=== PATIENT | male | born 1960 | race Caucasian/White ===

== ENCOUNTER 2016-06-29 14:11 | Emergency (ER) | payer MEDICARE, MEDICAID ==
[2016-06-29] MEDS ORDERED: Sodium Chloride 0.9% 1,000 ML IV SCH (15:30)
[2016-06-29] MEDS ORDERED: Levofloxacin/Dextrose 5%-Water 750 MG in Premix Bag 1 BAG IV ONE (16:35)
--- NOTE | 2016-06-29 16:36 | EDM.PDOC ---
[id number] [facility] Time Seen by Provider: 06/29/16 14:45 Source of Information: Reports: Patient, EMS, Family History Limitations: Reports: No limitations - History of Present Illness INITIAL COMMENTS - FREE TEXT/NARRATIVE: Medical starting today because of several days of diarrhea, weakness and dizziness and intermittent low-grade fevers. His urine started turning dark today so they figured he better come in and get checked and arrived by ambulance. No significant pain, no headache. No nausea or vomiting. Onset: gradual, other Duration: Day(s): (2-3 days) Severity: mild Associated Symptoms: Reports: fever/chills, loss of appetite, weakness, other ( Diarrhea). Denies: nausea/vomiting, shortness of breath - Related Data Allergies Allergy/AdvReac Type Severity Reaction Status Date / Time Penicillins Allergy Severe anaphylaxis Verified 06/29/16 14:36 bacitracin [From Mycitracin] Allergy Mild Rash Verified 06/29/16 14:36 bacitracin zinc Allergy Mild Rash Verified 06/29/16 14:36 [From Mycitracin] neomycin sulfate Allergy Mild Rash Verified 06/29/16 14:36 [From Mycitracin] polymyxin B [From Mycitracin] Allergy Mild Rash Verified 06/29/16 14:36 sulfamethoxazole Allergy Confusion Verified 06/29/16 14:36 [From Bactrim] trimethoprim [From Bactrim] Allergy Confusion Verified 06/29/16 14:36 Home Meds: Home Meds Nystatin 15 applic TOP ASDIRECTED PRN 01/20/13 [History] Levofloxacin [Levaquin] 1 tab PO DAILY 06/29/16 [History] Past Medical History HEENT History: Reports: Impaired vision Genitourinary History: Reports: UTI, recurrent Musculoskeletal History: Reports: Arthritis, Fracture Neurological History: Reports: Other (see below) Other Neuro History: parapalegic Endocrine/Metabolic History: Reports: Obesity/BMI 30+ Dermatologic History: Reports: Other (see below) Other Dermatologic History: occasional yeast rash - Infectious Disease History Infectious Disease History: Reports: Chicken pox - Past Surgical History HEENT Surgical History: Reports: Oral surgery GI Surgical History: Reports: Colonoscopy Neurological Surgical History: Reports: Other (see below) Other Neurological Surgeries/Procedures: surgery on spine and spinal cord x7 Musculoskeletal Surgical History: Reports: Other (see below) Other Musculoskeletal Surgeries/Procedures:: left femur Social & Family History - Family History Family Medical History: Unobtainable - Tobacco Use Smoking Status *Q: Light Tobacco Smoker Years of Tobacco use: 25 Packs/Tins Daily: 0.3 Used Tobacco, but Quit: No Second Hand Smoke Exposure: Yes - Caffeine Use Caffeine Use: Reports: Coffee - Alcohol Use Days Per Week of Alcohol Use: 0 - Recreational Drug Use Recreational Drug Use: No - Living Situation & Occupation Occupation: disabled (l[facility]) ED ROS GENERAL - Review of Systems Review Of Systems: See Below Constitutional: Reports: fever, chills HEENT: Reports: No symptoms Respiratory: Denies: Shortness of Breath, Cough Cardiovascular: Denies: Chest pain GI/Abdominal: Reports: Diarrhea. Denies: Abdominal pain : Reports: other (Urine has become dark) Neurological: Reports: Dizziness Psychiatric: Reports: No symptoms ED EXAM, GENERAL - Physical Exam Exam: See Below Exam Limited By: No limitations General Appearance: alert, no apparent distress Respiratory/Chest: no respiratory distress, lungs clear Cardiovascular: regular rate, rhythm GI/Abdominal: soft, non tender Neurological: alert, oriented, sensory/motor deficit (Patient has no sensation below the xiphoid process) Course - Vital Signs Last Recorded V/S: Last Vital Signs Temp 100.9 F H 06/29/16 18:12 Pulse 105 H 06/29/16 18:12 Resp 18 06/29/16 18:12 BP 149/96 H 06/29/16 18:12 Pulse Ox 97 06/29/16 18:12 - Orders/Labs/Meds Orders: Active Orders 24 hr Category Date Time Status CULTURE URINE [RM] Stat Lab 06/29/16 16:38 Received Labs: Laboratory Tests 06/29/16 06/29/16 06/29/16 Range/Units 15:26 15:26 15:37 WBC 3.6 L (4.5-11.0) K/uL RBC 4.84 (4.30-5.90) M/uL Hgb 14.1 (12.0-15.0) g/dL Hct 40.7 (40.0-54.0) % MCV 84 (80-98) fL MCH 29 (27-31) pg MCHC 35 (32-36) % Plt Count 179 (150-400) K/uL Neut % (Auto) 54 (36-66) % Lymph % (Auto) 27 (24-44) % [place] % (Auto) 19 H (2-6) % Eos % (Auto) 0 L (2-4) % Baso % (Auto) 0 (0-1) % Sodium 125 L (140-148) mmol/L Potassium 3.3 L (3.6-5.2) mmol/L Chloride 89 L (100-108) mmol/L Carbon Dioxide 28 (21-32) mmol/L Anion Gap 11.3 (5.0-14.0) mmol/L BUN 10 (7-18) mg/dL Creatinine 0.7 L (0.8-1.3) mg/dL Est Cr Clr Drug Dosing 137.92 mL/min Estimated GFR (MDRD) > 60 (>60) Glucose 86 (74-106) mg/dL Calcium 7.7 L (8.5-10.1) mg/dL Urine Color Yellow Urine Appearance Cloudy Urine pH 6.0 (4.5-8.0) Ur Specific [place] 1.015 (1.008-1.030) Urine Protein Negative (NEGATIVE) mg/dL Urine Glucose (UA) Normal (NEGATIVE) mg/dL Urine Ketones 15 H (NEGATIVE) mg/dL Urine Occult Blood Moderate (NEGATIVE) Urine Nitrite Positive H (NEGAITVE) Urine Bilirubin Negative (NEGATIVE) Urine Urobilinogen 1 (NORMAL) mg/dL Ur Leukocyte Esterase Small (NEGATIVE) Urine RBC 5-10 H (0-5) Urine WBC Semi-packed H (0-5) Ur Epithelial Cells Few Amorphous Sediment Few Urine Bacteria Many Urine Mucus Moderate Meds: Medications Discontinued Medications Generic Name Dose Route Start Last Admin Trade Name Freq PRN Reason Stop Dose Admin Sodium Chloride 1,000 mls @ 1,000 mls/hr 06/29/16 15:30 06/29/16 15:42 Normal Saline IV 1,000 mls/hr ASDIRECTED KRISTAN Administration Levofloxacin/Dextrose 750 mg/ 150 mls @ 100 mls/hr 06/29/16 16:35 06/29/16 16 :39 Premix IV 06/29/16 18:04 100 mls/hr ONETIME ONE Administration - Re-Assessments/Exams Free Text/Narrative Re-Assessment/Exam: 03/24/17 18:16 CBC and BMP were obtained which were unremarkable. UA was nitrite positive packed bacteria. Patient was given a liter of normal saline along with 750 mg of Levaquin IV. He had no symptoms while in the emergency room, and will be continued on Levaquin 500 mg daily for another 6 days. Departure - Departure Time of Disposition: 18:30 Disposition: Home, Self-Care 01 Condition: good Clinical Impression: Dehydration, mild UTI (urinary tract infection) Qualifiers: Urinary tract infection type: acute cystitis Hematuria presence: without hematuria Qualified Code(s): N30.00 - Acute cystitis without hematuria Diarrhea Qualifiers: Diarrhea type: unspecified type Qualified Code(s): R19.7 - Diarrhea, unspecified Instructions: Urinary Tract Infection, Adult, [id number], Dehydration, Adult Referrals: Bob Rome MD [Primary Care Provider] - Forms: ED Department Discharge Care Plan Goals: Advance diet as tolerated, concentrating on fluids. Take one dose of Levaquin daily for at least 6 additional doses. Return anytime if you feel you are worsening or have other concerns - My Orders Last 24 Hours: My Active Orders 06/29/16 16:38 CULTURE URINE [RM] Stat - Assessment/Plan Last 24 Hours: My Active Orders 06/29/16 16:38 CULTURE URINE [RM] Stat
[2016-06-29 18:14] VITALS: BP 149/96
== END 2016-06-29 18:31 | disposition home or self-care (01) ==
LOC: JP.ED 14:11
DX: E86.0 Dehydration (principal); N30.00 Acute cystitis without hematuria; R19.7 Diarrhea, unspecified; F17.210 Nicotine dependence, cigarettes, uncomplicated; E66.9 Obesity, unspecified; Z68.37 Body mass index [BMI] 37.0-37.9, adult; Z98.890 Other specified postprocedural states; Z79.899 Other long term (current) drug therapy; Z88.0 Allergy status to penicillin; Z88.1 Allergy status to other antibiotic agents
CPT/HCPCS: 36415; 80048; 81001; 85025; 87086; 96361; 96365; 99284; J1956; J7040

== ENCOUNTER 2017-06-04 20:28 | Emergency (ER) | payer MEDICARE, MEDICAID ==
[2017-06-04 20:44] VITALS: BP 173/95
--- NOTE | 2017-06-04 21:11 | EDM.PDOC ---
ED HPI GENERAL MEDICAL PROBLEM - General Chief Complaint: Genitourinary Problem Stated Complaint: BLADDER INFECTION Time Seen by Provider: 06/04/17 20:55 Source of Information: Reports: Patient History Limitations: Reports: No Limitations - History of Present Illness INITIAL COMMENTS - FREE TEXT/NARRATIVE: 56-year-old male paraplegic with a chronic indwelling catheter has a standing order for Levaquin when his urine gets cloudy. He developed cloudy urine several days ago and is taken Levaquin daily for 5 days but he feels a urine is getting worse, more cloudy and a "white" colored. He had some mild low back pain yesterday but he lays down and it goes away. No fevers or chills, he does have a persistent bronchitis which is worse at night. Duration: Day(s): (Days of cloudy urine) Severity: Mild Associated Symptoms: Reports: Shortness of Breath (Becomes short of breath when coughing). Denies: Fever/Chills - Related Data Allergies Allergy/AdvReac Type Severity Reaction Status Date / Time Penicillins Allergy Severe anaphylaxis Verified 06/04/17 20:43 bacitracin [From Mycitracin] Allergy Mild Rash Verified 06/04/17 20:43 bacitracin zinc Allergy Mild Rash Verified 06/04/17 20:43 [From Mycitracin] neomycin sulfate Allergy Mild Rash Verified 06/04/17 20:43 [From Mycitracin] polymyxin B [From Mycitracin] Allergy Mild Rash Verified 06/04/17 20:43 sulfamethoxazole Allergy Confusion Verified 06/04/17 20:43 [From Bactrim] trimethoprim [From Bactrim] Allergy Confusion Verified 06/04/17 20:43 Home Meds: Home Meds Nystatin 15 applic TOP ASDIRECTED PRN 01/20/13 [History] Levofloxacin [Levaquin] 1 tab PO DAILY 06/29/16 [History] Aspirin [Lo-Dose Aspirin EC] 81 mg PO DAILY 06/04/17 [History] Past Medical History HEENT History: Reports: Impaired Vision Genitourinary History: Reports: UTI, Recurrent Musculoskeletal History: Reports: Arthritis, Fracture Neurological History: Reports: Other (See Below) Other Neuro History: parapalegic Endocrine/Metabolic History: Reports: Obesity/BMI 30+ Dermatologic History: Reports: Other (See Below) Other Dermatologic History: occasional yeast rash - Infectious Disease History Infectious Disease History: Reports: Chicken Pox - Past Surgical History HEENT Surgical History: Reports: Oral Surgery GI Surgical History: Reports: Colonoscopy Neurological Surgical History: Reports: Other (See Below) Musculoskeletal Surgical History: Reports: Other (See Below) Other Musculoskeletal Surgeries/Procedures:: para palegic Social & Family History - Family History Family Medical History: Unobtainable - Tobacco Use Smoking Status *Q: Current Every Day Smoker Years of Tobacco use: 30 Packs/Tins Daily: 0.5 Used Tobacco, but Quit: No Second Hand Smoke Exposure: Yes - Caffeine Use Caffeine Use: Reports: Coffee - Alcohol Use Days Per Week of Alcohol Use: 0 - Recreational Drug Use Recreational Drug Use: No - Living Situation & Occupation Occupation: Disabled ED ROS GENERAL - Review of Systems Review Of Systems: See Below Constitutional: Denies: Fever, Chills HEENT: Reports: No Symptoms Respiratory: Reports: Shortness of Breath, Cough Cardiovascular: Denies: Chest Pain GI/Abdominal: Denies: Abdominal Pain, Nausea, Vomiting : Reports: Other (Cloudy urine) Musculoskeletal: Reports: Back Pain (Intermittent low back pain over the past several days which improves when lying down) ED EXAM, RENAL/ - Physical Exam Exam: See Below Exam Limited By: No Limitations General Appearance: Alert, No Apparent Distress Respiratory/Chest: No Respiratory Distress, Lungs Clear Cardiovascular: Regular Rate, Rhythm Back Exam: No: CVA Tenderness (R), CVA Tenderness (L) Neurological: Alert, Oriented Psychiatric: Normal Affect, Normal Mood Skin Exam: Warm, Dry Course - Vital Signs Last Recorded V/S: Last Vital Signs Temp 97.8 F 06/04/17 20:45 Pulse 98 06/04/17 20:45 Resp 16 06/04/17 20:45 BP 173/95 H 06/04/17 20:45 Pulse Ox 96 06/04/17 20:45 - Orders/Labs/Meds Orders: Active Orders 24 hr Category Date Time Status CULTURE URINE [RM] Stat Lab 06/04/17 21:38 Received Labs: Laboratory Tests 06/04/17 Range/Units 21:04 Urine Color Yellow Urine Appearance Cloudy Urine pH 7.0 (4.5-8.0) Ur Specific [place] 1.010 (1.008-1.030) Urine Protein Negative (NEGATIVE) mg/dL Urine Glucose (UA) Normal (NEGATIVE) mg/dL Urine Ketones 15 H (NEGATIVE) mg/dL Urine Occult Blood Moderate (NEGATIVE) Urine Nitrite Positive H (NEGAITVE) Urine Bilirubin Negative (NEGATIVE) Urine Urobilinogen Normal (NORMAL) mg/dL Ur Leukocyte Esterase Large (NEGATIVE) Urine RBC 5-10 H (0-5) Urine WBC Semi-packed H (0-5) Ur Epithelial Cells Few Amorphous Sediment Not seen Urine Bacteria Many Urine Mucus Few - Re-Assessments/Exams Free Text/Narrative Re-Assessment/Exam: 06/04/17 21:10 A UA was obtained. It was explained to the patient that his cough is likely viral especially in light that it is not improving on the Levaquin. 06/04/17 21:41 UA shows packed WBCs, many bacteria and nitrite positive urine. A urine culture was initiated. Patient will be placed on Macrodantin twice daily, and will also be given Tessalon Perles and an albuterol inhaler to help with his viral bronchitis. Urine culture result will be available in 48 hours. Departure - Departure Time of Disposition: 21:59 Disposition: Home, Self-Care 01 Condition: Good Clinical Impression: UTI, Urinary tract infectious disease, Viral bronchitis - Discharge Information Instructions: Urinary Tract Infection, Adult, [id number] Referrals: Phi Steven PA [Primary Care Provider] - Forms: ED Department Discharge Care Plan Goals: Take antibiotic as directed, stop Levaquin. Use cough suppression medicine and inhaler for your bronchitis. Return anytime if worsening or concerns, a urine culture will be available in 48 hours. - My Orders Last 24 Hours: My Active Orders 06/04/17 21:38 CULTURE URINE [RM] Stat - Assessment/Plan Last 24 Hours: My Active Orders 06/04/17 21:38 CULTURE URINE [RM] Stat
== END 2017-06-04 22:00 | disposition home or self-care (01) ==
LOC: JP.ED 20:28
DX: N39.0 Urinary tract infection, site not specified (principal); J20.8 Acute bronchitis due to other specified organisms; F17.210 Nicotine dependence, cigarettes, uncomplicated; E66.9 Obesity, unspecified; Z79.82 Long term (current) use of aspirin; Z79.2 Long term (current) use of antibiotics; Z88.0 Allergy status to penicillin; Z88.1 Allergy status to other antibiotic agents; Z88.2 Allergy status to sulfonamides; Z68.36 Body mass index [BMI] 36.0-36.9, adult
CPT/HCPCS: 81001; 87086; 99283; 99284

== ENCOUNTER 2018-06-23 18:13 | Emergency (ER) | payer MEDICARE, MEDICAID ==
[2018-06-23 18:34] VITALS: BP 178/90
--- NOTE | 2018-06-23 19:11 | EDM.PDOC ---
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 noticed the last 24 hours he's developed blood and clots in his urine is concerned he might have urinary tract infection no other symptoms at this time - Related Data Allergies Allergy/AdvReac Type Severity Reaction Status Date / Time Penicillins Allergy Severe anaphylaxis Verified 06/23/18 18:38 bacitracin [From Mycitracin] Allergy Mild Rash Verified 06/23/18 18:38 bacitracin zinc Allergy Mild Rash Verified 06/23/18 18:38 [From Mycitracin] neomycin sulfate Allergy Mild Rash Verified 06/23/18 18:38 [From Mycitracin] polymyxin B [From Mycitracin] Allergy Mild Rash Verified 06/23/18 18:38 sulfamethoxazole Allergy Confusion Verified 06/23/18 18:38 [From Bactrim] trimethoprim [From Bactrim] Allergy Confusion Verified 06/23/18 18:38 Home Meds: Home Meds Nystatin 15 applic TOP ASDIRECTED PRN 01/20/13 [History] Aspirin [Lo-Dose Aspirin EC] 81 mg PO DAILY 06/04/17 [History] Past Medical History HEENT History: Reports: Impaired Vision Genitourinary History: Reports: UTI, Recurrent Musculoskeletal History: Reports: Arthritis, Fracture Neurological History: Reports: Other (See Below) Other Neuro History: parapalegic Endocrine/Metabolic History: Reports: Obesity/BMI 30+ Dermatologic History: Reports: Other (See Below) Other Dermatologic History: occasional yeast rash - Infectious Disease History Infectious Disease History: Reports: Chicken Pox - Past Surgical History HEENT Surgical History: Reports: Oral Surgery GI Surgical History: Reports: Colonoscopy Neurological Surgical History: Reports: Other (See Below) Musculoskeletal Surgical History: Reports: Other (See Below) Other Musculoskeletal Surgeries/Procedures:: para palegic Social & Family History - Family History Family Medical History: Unobtainable - Tobacco Use Smoking Status *Q: Current Every Day Smoker Years of Tobacco use: 25 Packs/Tins Daily: 0.2 - Caffeine Use Caffeine Use: Reports: Coffee, Tea - Recreational Drug Use Recreational Drug Use: No - Living Situation & Occupation Occupation: Disabled ED ROS GENERAL - Review of Systems Review Of Systems: ROS reveals no pertinent complaints other than HPI. ED EXAM, RENAL/ - Physical Exam Exam: See Below Exam Limited By: No Limitations General Appearance: Alert, WD/WN, No Apparent Distress Respiratory/Chest: No Respiratory Distress GI/Abdominal: Soft, Non-Tender Back Exam: No: CVA Tenderness (R), CVA Tenderness (L) Course - Vital Signs Last Recorded V/S: Last Vital Signs Temp 97.3 F 06/23/18 18:36 Pulse 104 H 06/23/18 18:36 Resp 16 06/23/18 18:36 BP 178/90 H 06/23/18 18:36 Pulse Ox 97 06/23/18 18:36 - Orders/Labs/Meds Orders: Active Orders 24 hr Category Date Time Status CULTURE URINE [RM] Urgent Lab 06/23/18 19:04 Ordered Labs: Laboratory Tests 06/23/18 Range/Units 18:37 Urine Color Brown Urine Appearance Cloudy Urine pH 8.0 (4.5-8.0) Ur Specific [place] 1.010 (1.008-1.030) Urine Protein 30 H (NEGATIVE) mg/dL Urine Glucose (UA) Normal (NEGATIVE) mg/dL Urine Ketones Negative (NEGATIVE) mg/dL Urine Occult Blood Large (NEGATIVE) Urine Nitrite Positive H (NEGAITVE) Urine Bilirubin Negative (NEGATIVE) Urine Urobilinogen Normal (NORMAL) mg/dL Ur Leukocyte Esterase Large (NEGATIVE) Urine RBC >100 H (0-5) Urine WBC 30-40 H (0-5) Ur Epithelial Cells Few Amorphous Sediment Not seen Urine Bacteria Many Urine Mucus Not seen Departure - Departure Time of Disposition: 19:10 Disposition: Home, Self-Care 01 Condition: Fair Clinical Impression: UTI, Urinary tract infectious disease - Discharge Information Referrals: Phi Steven PA [Primary Care Provider] - Additional Instructions: take all anabiotics, follow up with PCP in 3-5 days if not better - My Orders Last 24 Hours: My Active Orders 06/23/18 19:04 CULTURE URINE [RM] Urgent - Assessment/Plan Last 24 Hours: My Active Orders 06/23/18 19:04 CULTURE URINE [RM] Urgent Plan: Assessment Acuity = acute Site and laterality = complicated urinary tract infection Etiology = probable bacterial cause Manifestations = hematuria] Location of injury = Home Lab values = positive for nitrates greater than 100 rbc's consistent hematuria 30-40 wbc's consists of pyuria cultures pending Plan Prescription written for levofloxacin 500 mg daily 7 days cultures pending follow-up primary care in 3-5 days if no improvement This note was dictated using [employer] voice recognition software please call with any questions on syntax or grammar.
== END 2018-06-23 19:17 | disposition home or self-care (01) ==
LOC: JP.ED 18:13
DX: N39.0 Urinary tract infection, site not specified (principal)
CPT/HCPCS: 81001; 87086; 99283

== ENCOUNTER 2019-07-13 19:13 | Emergency (ER) | payer MEDICARE, MEDICAID ==
[2019-07-13] MEDS ORDERED: diphenhydrAMINE 25 MG Cap PO ONE (19:48)
[2019-07-13] MEDS ORDERED: methylPREDNISolone Sodium Succinate 125 MG/2 ML SDV IM ONE (19:49)
--- NOTE | 2019-07-13 19:53 | EDM.PDOC ---
ED HPI GENERAL MEDICAL PROBLEM - General Chief Complaint: ENT Problem Stated Complaint: SWOLLEN BOTTOM LIP Time Seen by Provider: 07/13/19 19:49 Source of Information: Reports: Patient History Limitations: Reports: No Limitations - History of Present Illness INITIAL COMMENTS - FREE TEXT/NARRATIVE: p has a markedly swollen lower lip. This started earlier in the day. He does take 40 mg of lisinopril daily. pt is not having any difficulty breathing Onset: Today Duration: Hour(s): Location: Reports: Face Associated Symptoms: Reports: No Other Symptoms - Related Data Allergies Allergy/AdvReac Type Severity Reaction Status Date / Time Penicillins Allergy Severe anaphylaxis Verified 07/13/19 19:26 bacitracin [From Mycitracin] Allergy Mild Rash Verified 07/13/19 19:26 bacitracin zinc Allergy Mild Rash Verified 07/13/19 19:26 [From Mycitracin] neomycin sulfate Allergy Mild Rash Verified 07/13/19 19:26 [From Mycitracin] polymyxin B [From Mycitracin] Allergy Mild Rash Verified 07/13/19 19:26 sulfamethoxazole Allergy Confusion Verified 07/13/19 19:26 [From Bactrim] trimethoprim [From Bactrim] Allergy Confusion Verified 07/13/19 19:26 Home Meds: Home Meds Nystatin 15 applic TOP ASDIRECTED PRN 01/20/13 [History] amLODIPine Besylate [Amlodipine Besylate] 1 tab PO DAILY 07/13/19 [History] hydroCHLOROthiazide [Hydrochlorothiazide] 1 tab PO DAILY 07/13/19 [History] lisinopriL [Lisinopril] 1 tab PO DAILY 07/13/19 [History] Past Medical History HEENT History: Reports: Impaired Vision Cardiovascular History: Reports: Hypertension Genitourinary History: Reports: UTI, Recurrent Musculoskeletal History: Reports: Arthritis, Fracture Neurological History: Reports: Other (See Below) Other Neuro History: parapalegic Endocrine/Metabolic History: Reports: Obesity/BMI 30+ Dermatologic History: Reports: Other (See Below) Other Dermatologic History: occasional yeast rash - Infectious Disease History Infectious Disease History: Reports: Chicken Pox - Past Surgical History HEENT Surgical History: Reports: Oral Surgery GI Surgical History: Reports: Colonoscopy Neurological Surgical History: Reports: Other (See Below) Musculoskeletal Surgical History: Reports: Other (See Below) Other Musculoskeletal Surgeries/Procedures:: para palegic Social & Family History - Family History Family Medical History: Unobtainable - Tobacco Use Smoking Status *Q: Current Every Day Smoker Years of Tobacco use: 45 Packs/Tins Daily: 0.5 - Caffeine Use Caffeine Use: Reports: Coffee - Alcohol Use Days Per Week of Alcohol Use: 1 Number of Drinks Per Day: 1 Total Drinks Per Week: 1 - Recreational Drug Use Recreational Drug Use: No - Living Situation & Occupation Occupation: Disabled ED ROS ENT - Review of Systems Review Of Systems: See Below Constitutional: Reports: No Symptoms HEENT: Reports: Other (marked swelling of his lower lip. ) Respiratory: Reports: No Symptoms Cardiovascular: Reports: No Symptoms Endocrine: Reports: No Symptoms GI/Abdominal: Reports: No Symptoms : Reports: No Symptoms Musculoskeletal: Reports: No Symptoms Skin: Reports: No Symptoms ED EXAM, ENT - Physical Exam Exam: See Below Text/Narrative:: pt arrived with swelling of his lower lip, He is on lisinopril 40 mg daily. He has not had the angioedema in the past. Exam Limited By: No Limitations General Appearance: Alert, No Apparent Distress, Anxious Ears: Normal TMs Nose: Normal Inspection Mouth/Throat: Other (lower lip is very swollen. He does not have swelling in the throat. ) Head: Atraumatic Neck: Normal Inspection Respiratory/Chest: No Respiratory Distress Cardiovascular: Regular Rate, Rhythm GI/Abdominal: Soft, Non-Tender (Male) Exam: Deferred Rectal (Males) Exam: Deferred Back: Normal Inspection Extremities: Normal Inspection Course - Vital Signs Last Recorded V/S: Last Vital Signs Temp 36.4 C 07/13/19 19:31 Pulse 87 07/13/19 19:31 Resp 13 07/13/19 19:31 BP 150/79 H 07/13/19 19:31 Pulse Ox 98 07/13/19 19:31 - Orders/Labs/Meds Meds: Medications Discontinued Medications Generic Name Dose Route Start Last Admin Trade Name Mago PRN Reason Stop Dose Admin Diphenhydramine HCl 50 mg 07/13/19 19:48 07/13/19 20:01 Benadryl PO 07/13/19 19:49 50 mg ONETIME ONE Administration Methylprednisolone Sodium Succinate 125 mg 07/13/19 19:49 07/13/19 20:02 Solu-Medrol IM 07/13/19 19:50 125 mg ONETIME ONE Administration - Re-Assessments/Exams Free Text/Narrative Re-Assessment/Exam: 07/13/19 20:24 pt had a cool pack, he was given solumedrol 125 im, and benadryl 50mg for the swelling He will be switched to amlodopine. He will see Melvina Johnson Saturday. Departure - Departure Time of Disposition: 20:50 Disposition: Home, Self-Care 01 Condition: Fair Clinical Impression: Angio-edema, Hypertension - Discharge Information Instructions: Angioedema, [id number] Referrals: Melvina Owen PA-C [Primary Care Provider] - Forms: ED Department Discharge Care Plan Goals: cool pack at midnight use benadryl 50 mg , stop lisinopril, amlodopine 5 mg bid for bp, appt Saturday for bp check with Melvina Alex. Sepsis Event Note - Evaluation Sepsis Screening Result: No Definite Risk - Focused Exam Date Exam was Performed: 07/15/19 Time Exam was Performed: 07:24
[2019-07-13 20:59] VITALS: BP 150/79; PULSE 87
== END 2019-07-13 20:49 | disposition home or self-care (01) ==
LOC: JP.ED 19:13
DX: T78.3XXA Angioneurotic edema, initial encounter (principal); I10 Essential (primary) hypertension; F17.210 Nicotine dependence, cigarettes, uncomplicated; Z88.0 Allergy status to penicillin; Z88.1 Allergy status to other antibiotic agents; Z88.2 Allergy status to sulfonamides; Z88.8 Allergy status to other drugs, medicaments and biological substances; Z79.899 Other long term (current) drug therapy
CPT/HCPCS: 96372; 99283; A9270; J2930

== ENCOUNTER 2021-04-12 17:05 | Inpatient (IN) | payer MEDICARE, MEDICAID ==
[2021-04-12 18:16] LABS: CORONAVIRUS COVID-19 NAA NEGATIVE (NEGATIVE)
[2021-04-12] MEDS ORDERED: Acetaminophen 325 MG Tab PO PRN (20:27)
[2021-04-12] MEDS ORDERED: Albuterol 8 GM Inhaler INH PRN (20:27)
[2021-04-12] MEDS ORDERED: Polyethylene Glycol 3350 Powder 17 GM Packet PO PRN (20:27)
[2021-04-12] MEDS ORDERED: Sodium Chloride 0.9% 10 ML Syringe FLUSH PRN (20:27)
[2021-04-12] MEDS ORDERED: Ondansetron 4 MG/2 ML SDV IV PRN (20:27)
[2021-04-12] MEDS ORDERED: cefTRIAXone 1 GM in Sodium Chloride 0.9% 50 ML IV SCH (20:27)
[2021-04-12] MEDS ORDERED: Enoxaparin 40 MG/0.4 ML Syringe SUBCUT SCH (20:27)
[2021-04-12] MEDS ORDERED: Nicotine Polacrilex 2 MG Gum CHEW PRN (20:38)
[2021-04-12] MEDS ORDERED: Potassium Chloride 20 MEQ Tab.ER PO ONE (20:39)
[2021-04-12] MEDS ORDERED: Potassium Chloride 20 MEQ Tab.ER PO SCH (21:00)
[2021-04-12] MEDS: Carvedilol 3.125 MG Tab PO SCH (22:03)
[2021-04-12] MEDS: atorvaSTATin 10 MG Tab PO SCH (22:04)
[2021-04-12] MEDS: Levofloxacin/Dextrose 5%-Water 500 MG in Premix Bag 1 BAG IV SCH (22:04)
[2021-04-12] MEDS: Nicotine 14 MG/24 Hr Patch TRDERM SCH (22:05)
[2021-04-13] MEDS: Sodium Chloride 0.9% 1,000 ML IV SCH ×3 (04:21→12:23)
[2021-04-13] MEDS: Formoterol/Mometasone 100-5 MCG 8.8 GM Inhaler IH SCH ×2 (08:54→20:54)
[2021-04-13] MEDS: Potassium Chloride 20 MEQ Tab.ER PO SCH ×2 (08:55→16:56)
[2021-04-13] MEDS ORDERED: Non-Formulary Medication 1 Each (Fluticasone/Vilanterol 1 EACH Each) IH SCH (09:00)
[2021-04-13] MEDS: Carvedilol 3.125 MG Tab PO SCH ×2 (09:18→20:53)
[2021-04-13] MEDS: amLODIPine 5 MG Tab PO SCH (09:20)
[2021-04-13] MEDS: Aspirin 81 MG Tab.EC PO SCH (09:20)
[2021-04-13] MEDS: Nicotine 14 MG/24 Hr Patch TRDERM SCH (09:22)
[2021-04-13] MEDS: Lisinopril 20 MG Tab PO SCH (09:26)
[2021-04-13] MEDS ORDERED: Sodium Chloride 3% 500 ML IV SCH ×2 (12:00→21:34)
[2021-04-13] MEDS ORDERED: Linezolid 600 MG in Premix Bag 1 BAG IV SCH (16:00)
[2021-04-13] MEDS: Norepinephrine Bit/D5W Premix 4 MG in Premix Bag 1 BAG IV SCH (16:57)
[2021-04-13] MEDS: Vancomycin 2 GM in Sodium Chloride 0.9% 500 ML IV SCH (17:54)
[2021-04-13] MEDS: atorvaSTATin 10 MG Tab PO SCH (20:53)
[2021-04-13] MEDS: Enoxaparin 40 MG/0.4 ML Syringe SUBCUT SCH (20:53)
[2021-04-13] MEDS: Levofloxacin/Dextrose 5%-Water 500 MG in Premix Bag 1 BAG IV SCH (20:54)
[2021-04-14] MEDS: Norepinephrine Bit/D5W Premix 4 MG in Premix Bag 1 BAG IV SCH ×3 (03:50→18:23)
[2021-04-14] MEDS: Vancomycin 2 GM in Sodium Chloride 0.9% 500 ML IV SCH ×2 (05:43→17:50)
[2021-04-14] MEDS: Formoterol/Mometasone 100-5 MCG 8.8 GM Inhaler IH SCH ×2 (07:04→21:39)
[2021-04-14] MEDS: Albuterol 0.083% 2.5 MG/3 ML Neb Soln NEB PRN ×2 (08:05→14:27)
[2021-04-14] MEDS: Potassium Chloride 20 MEQ Tab.ER PO SCH ×2 (08:07→18:21)
[2021-04-14] MEDS ORDERED: Potassium Chloride 20 MEQ Tab.ER PO ONE ×2 (09:05→17:00)
[2021-04-14] MEDS ORDERED: Dimethicone 20%/Zinc Oxide 25% 56 GM Spray Bottle TOP PRN (09:19)
[2021-04-14] MEDS: Carvedilol 3.125 MG Tab PO SCH ×2 (10:01→21:39)
[2021-04-14] MEDS: amLODIPine 5 MG Tab PO SCH (10:03)
[2021-04-14] MEDS: Lisinopril 20 MG Tab PO SCH (10:03)
[2021-04-14] MEDS: Aspirin 81 MG Tab.EC PO SCH (10:04)
[2021-04-14] MEDS: Nicotine 14 MG/24 Hr Patch TRDERM SCH (10:05)
[2021-04-14] MEDS ORDERED: Sodium Chloride 3% 500 ML IV SCH (14:45)
[2021-04-14] MEDS ORDERED: Morphine 2 MG/ML SYRINGE IM ONE (15:03)
[2021-04-14] MEDS: methylPREDNISolone Sodium Succinate 40 MG/1 ML SDV IVPUSH SCH (15:10)
[2021-04-14] MEDS ORDERED: Morphine 2 MG/ML SYRINGE IV ONE (15:15)
[2021-04-14] MEDS ORDERED: Furosemide 40 MG/4 ML VIAL ONE (15:15)
[2021-04-14] MEDS ORDERED: Furosemide 40 MG/4 ML VIAL IVPUSH ONE (15:16)
[2021-04-14] MEDS ORDERED: Propofol 200 MG/20 ML SDV ONE ×2 (15:49→18:08)
[2021-04-14] MEDS ORDERED: Heparin Sodium 5,000 UNITS in Sodium Chloride 0.9% 500 ML IV SCH (16:00)
[2021-04-14] MEDS ORDERED: Vasopressin 40 UNITS in Dextrose 5% in Water 100 ML IV SCH ×2 (16:45)
[2021-04-14] MEDS: propofoL 100 ML ONE ×2 (17:10→18:49)
[2021-04-14] MEDS: Vasopressin 40 UNITS in Dextrose 5% in Water 100 ML IV SCH ×4 (17:45→17:49)
[2021-04-14] MEDS ORDERED: Vasopressin 100 UNITS in Dextrose 5% in Water 250 ML IV SCH ×2 (17:45)
[2021-04-14] MEDS ORDERED: Succinylcholine 200 MG/10 ML MDV ONE (18:08)
[2021-04-14] MEDS: propofoL 100 ML IV SCH (18:47)
[2021-04-14] MEDS: atorvaSTATin 10 MG Tab PO SCH (21:38)
[2021-04-14] MEDS: Levofloxacin/Dextrose 5%-Water 500 MG in Premix Bag 1 BAG IV SCH (21:58)
[2021-04-14] MEDS: Enoxaparin 40 MG/0.4 ML Syringe SUBCUT SCH (22:08)
[2021-04-14] MEDS: Linezolid 600 MG in Premix Bag 1 BAG IV SCH (23:14)
[2021-04-15] MEDS: Norepinephrine Bit/D5W Premix 4 MG in Premix Bag 1 BAG IV SCH ×3 (00:01→15:57)
[2021-04-15] MEDS: methylPREDNISolone Sodium Succinate 40 MG/1 ML SDV IVPUSH SCH ×4 (01:33→23:49)
[2021-04-15] MEDS: propofoL 100 ML IV SCH ×4 (04:33→23:43)
[2021-04-15] MEDS: Formoterol/Mometasone 100-5 MCG 8.8 GM Inhaler IH SCH ×2 (06:50→20:15)
[2021-04-15] MEDS ORDERED: Lactated Ringers 1,000 ML IV SCH (07:15)
[2021-04-15] MEDS: Potassium Chloride 20 MEQ Tab.ER PO SCH ×2 (07:32→16:01)
[2021-04-15] MEDS ORDERED: Sodium Chloride 0.9% 1,000 ML IV SCH (08:45)
[2021-04-15] MEDS: Meropenem 1 GM in Sodium Chloride 0.9% 100 ML IV SCH ×2 (09:05→17:43)
[2021-04-15] MEDS: Pantoprazole 40 MG Vial IVPUSH SCH (09:28)
[2021-04-15] MEDS: Lisinopril 20 MG Tab PO SCH (09:31)
[2021-04-15] MEDS: Aspirin 81 MG Tab.EC PO SCH (09:32)
[2021-04-15] MEDS: amLODIPine 5 MG Tab PO SCH (09:32)
[2021-04-15] MEDS: Nicotine 14 MG/24 Hr Patch TRDERM SCH (09:33)
[2021-04-15] MEDS ORDERED: Sodium Chloride 0.9% 10 ML Syringe FLUSH PRN (09:39)
[2021-04-15] MEDS ORDERED: Sodium Chloride 0.9% 100 ML IV ONE (09:39)
[2021-04-15] MEDS: Carvedilol 3.125 MG Tab PO SCH ×2 (09:42→20:15)
[2021-04-15] MEDS ORDERED: Iopamidol 755 Mg/ML 100 ML Bottle IV SCH (09:45)
[2021-04-15] MEDS: Linezolid 600 MG in Premix Bag 1 BAG IV SCH ×2 (09:54→22:18)
[2021-04-15] MEDS: Magnesium Sulfate/Water 2 GM in Premix Bag 1 BAG IV SCH ×2 (11:40→15:37)
[2021-04-15] MEDS: Vasopressin 40 UNITS in Dextrose 5% in Water 100 ML IV SCH ×2 (12:02)
[2021-04-15 18:16] LABS: CORONAVIRUS COVID-19 NAA NEGATIVE (NEGATIVE)
[2021-04-15] MEDS ORDERED: Potassium Chloride 20 MEQ in Premix Bag 1 BAG IV ONE ×2 (20:00→22:00)
[2021-04-15] MEDS: atorvaSTATin 10 MG Tab PO SCH (20:16)
[2021-04-15] MEDS: Enoxaparin 40 MG/0.4 ML Syringe SUBCUT SCH (20:18)
[2021-04-15] MEDS: Levofloxacin/Dextrose 5%-Water 500 MG in Premix Bag 1 BAG IV SCH (20:18)
[2021-04-16] MEDS: Meropenem 1 GM in Sodium Chloride 0.9% 100 ML IV SCH ×3 (00:20→16:31)
[2021-04-16] MEDS: Norepinephrine Bit/D5W Premix 4 MG in Premix Bag 1 BAG IV SCH (03:45)
[2021-04-16] MEDS: propofoL 100 ML IV SCH ×3 (04:39→10:48)
[2021-04-16] MEDS: Formoterol/Mometasone 100-5 MCG 8.8 GM Inhaler IH SCH ×2 (07:36→20:54)
[2021-04-16] MEDS ORDERED: Potassium Chloride Riders 40 MEQ in Premix Bag 1 BAG IV ONE (08:14)
[2021-04-16] MEDS: methylPREDNISolone Sodium Succinate 40 MG/1 ML SDV IVPUSH SCH ×3 (08:50→22:10)
[2021-04-16] MEDS: Potassium Chloride 20 MEQ Tab.ER PO SCH ×2 (09:10→16:31)
[2021-04-16] MEDS: Pantoprazole 40 MG Vial IVPUSH SCH (09:31)
[2021-04-16] MEDS: Nicotine 14 MG/24 Hr Patch TRDERM SCH (09:34)
[2021-04-16] MEDS: Linezolid 600 MG in Premix Bag 1 BAG IV SCH ×2 (09:59→22:10)
[2021-04-16] MEDS: Aspirin 81 MG Tab.EC PO SCH (10:14)
[2021-04-16] MEDS: Carvedilol 3.125 MG Tab PO SCH (10:14)
[2021-04-16] MEDS: amLODIPine 5 MG Tab PO SCH (10:15)
[2021-04-16] MEDS: Lisinopril 20 MG Tab PO SCH (10:15)
[2021-04-16] MEDS ORDERED: Furosemide 40 MG/4 ML VIAL IVPUSH ONE (14:03)
[2021-04-16] MEDS ORDERED: Potassium Chloride 20 MEQ Tab.ER PO ONE (17:00)
[2021-04-16] MEDS: Levofloxacin/Dextrose 5%-Water 500 MG in Premix Bag 1 BAG IV SCH (20:55)
[2021-04-16] MEDS: Enoxaparin 40 MG/0.4 ML Syringe SUBCUT SCH (20:57)
[2021-04-16] MEDS: atorvaSTATin 10 MG Tab PO SCH (20:58)
[2021-04-17] MEDS: Meropenem 1 GM in Sodium Chloride 0.9% 100 ML IV SCH ×3 (00:28→16:52)
[2021-04-17] MEDS: Formoterol/Mometasone 100-5 MCG 8.8 GM Inhaler IH SCH ×2 (07:18→21:35)
[2021-04-17] MEDS: methylPREDNISolone Sodium Succinate 40 MG/1 ML SDV IVPUSH SCH ×3 (07:33→23:12)
[2021-04-17] MEDS: Potassium Chloride 20 MEQ Tab.ER PO SCH ×2 (08:34→16:51)
[2021-04-17] MEDS: Pantoprazole 40 MG Vial IVPUSH SCH (08:34)
[2021-04-17] MEDS: Lisinopril 20 MG Tab PO SCH (08:42)
[2021-04-17] MEDS: Carvedilol 3.125 MG Tab PO SCH ×2 (08:43→21:35)
[2021-04-17] MEDS: amLODIPine 5 MG Tab PO SCH (08:44)
[2021-04-17] MEDS: Aspirin 81 MG Tab.EC PO SCH (08:44)
[2021-04-17] MEDS: Nicotine 14 MG/24 Hr Patch TRDERM SCH (08:46)
[2021-04-17] MEDS: Linezolid 600 MG in Premix Bag 1 BAG IV SCH (09:32)
[2021-04-17] MEDS: Levofloxacin/Dextrose 5%-Water 500 MG in Premix Bag 1 BAG IV SCH (21:35)
[2021-04-17] MEDS: Enoxaparin 40 MG/0.4 ML Syringe SUBCUT SCH (21:35)
[2021-04-17] MEDS: atorvaSTATin 10 MG Tab PO SCH (21:35)
[2021-04-18] MEDS: Meropenem 1 GM in Sodium Chloride 0.9% 100 ML IV SCH ×3 (01:24→16:31)
[2021-04-18] MEDS: Formoterol/Mometasone 100-5 MCG 8.8 GM Inhaler IH SCH ×2 (07:19→20:18)
[2021-04-18] MEDS ORDERED: predniSONE 20 MG Tab PO SCH (08:00)
[2021-04-18] MEDS: Nicotine 14 MG/24 Hr Patch TRDERM SCH (08:25)
[2021-04-18] MEDS: Carvedilol 3.125 MG Tab PO SCH ×2 (09:11→20:18)
[2021-04-18] MEDS: Potassium Chloride 20 MEQ Tab.ER PO SCH ×2 (09:12→16:31)
[2021-04-18] MEDS: Pantoprazole 40 MG Tab.CR PO SCH (09:12)
[2021-04-18] MEDS: Aspirin 81 MG Tab.EC PO SCH (09:12)
[2021-04-18] MEDS: Albuterol/Ipratropium 3.0-0.5 MG/3 ML Neb Soln NEB SCH ×3 (10:41→20:19)
[2021-04-18] MEDS: Levofloxacin/Dextrose 5%-Water 500 MG in Premix Bag 1 BAG IV SCH (20:16)
[2021-04-18] MEDS: Enoxaparin 40 MG/0.4 ML Syringe SUBCUT SCH (20:17)
[2021-04-18] MEDS: atorvaSTATin 10 MG Tab PO SCH (20:18)
[2021-04-19] MEDS: Meropenem 1 GM in Sodium Chloride 0.9% 100 ML IV SCH ×2 (01:23→08:26)
[2021-04-19] MEDS: Albuterol/Ipratropium 3.0-0.5 MG/3 ML Neb Soln NEB SCH ×4 (06:58→20:36)
[2021-04-19] MEDS: Formoterol/Mometasone 100-5 MCG 8.8 GM Inhaler IH SCH ×2 (06:58→20:36)
[2021-04-19] MEDS: Pantoprazole 40 MG Tab.CR PO SCH (07:34)
[2021-04-19] MEDS: predniSONE 20 MG Tab PO SCH (07:35)
[2021-04-19] MEDS: Potassium Chloride 20 MEQ Tab.ER PO SCH ×2 (07:35→18:06)
[2021-04-19] MEDS: Nicotine 14 MG/24 Hr Patch TRDERM SCH (08:27)
[2021-04-19] MEDS: Lisinopril 20 MG Tab PO SCH (08:28)
[2021-04-19] MEDS: amLODIPine 5 MG Tab PO SCH (08:29)
[2021-04-19] MEDS: Aspirin 81 MG Tab.EC PO SCH (08:29)
[2021-04-19] MEDS: Carvedilol 3.125 MG Tab PO SCH ×2 (08:29→20:35)
[2021-04-19] MEDS ORDERED: Potassium Chloride 20 MEQ Tab.ER PO ONE (12:00)
[2021-04-19] MEDS: Enoxaparin 40 MG/0.4 ML Syringe SUBCUT SCH (20:35)
[2021-04-19] MEDS: atorvaSTATin 10 MG Tab PO SCH (20:35)
[2021-04-19] MEDS ORDERED: Levofloxacin 250 MG Tab PO SCH (21:00)
[2021-04-20] MEDS: Albuterol/Ipratropium 3.0-0.5 MG/3 ML Neb Soln NEB SCH ×4 (06:58→20:21)
[2021-04-20] MEDS: Formoterol/Mometasone 100-5 MCG 8.8 GM Inhaler IH SCH ×2 (06:58→20:13)
[2021-04-20] MEDS: Nicotine 14 MG/24 Hr Patch TRDERM SCH (08:11)
[2021-04-20] MEDS: Pantoprazole 40 MG Tab.CR PO SCH (08:12)
[2021-04-20] MEDS: Potassium Chloride 20 MEQ Tab.ER PO SCH ×2 (08:12→16:00)
[2021-04-20] MEDS: predniSONE 20 MG Tab PO SCH (08:12)
[2021-04-20] MEDS: Lisinopril 20 MG Tab PO SCH (08:14)
[2021-04-20] MEDS: amLODIPine 5 MG Tab PO SCH (08:14)
[2021-04-20] MEDS: Carvedilol 3.125 MG Tab PO SCH ×2 (08:14→20:15)
[2021-04-20] MEDS: Aspirin 81 MG Tab.EC PO SCH (08:14)
[2021-04-20] MEDS ORDERED: levETIRAcetam in NaCl (iso-os) 1,000 MG in Premix Bag 1 BAG IV SCH ×2 (11:01)
[2021-04-20] MEDS: levETIRAcetam in NaCl (iso-os) 1,000 MG in Premix Bag 1 BAG IV SCH ×4 (11:07→23:00)
[2021-04-20] MEDS ORDERED: Sodium Chloride 0.9% 500 ML IV SCH (11:45)
[2021-04-20] MEDS: Doxycycline 100 MG Cap PO SCH (20:14)
[2021-04-20] MEDS: atorvaSTATin 10 MG Tab PO SCH (20:19)
[2021-04-20] MEDS: Enoxaparin 40 MG/0.4 ML Syringe SUBCUT SCH (20:19)
[2021-04-21] MEDS: Formoterol/Mometasone 100-5 MCG 8.8 GM Inhaler IH SCH ×2 (07:15→21:29)
[2021-04-21] MEDS: Albuterol/Ipratropium 3.0-0.5 MG/3 ML Neb Soln NEB SCH ×4 (07:16→21:29)
[2021-04-21] MEDS: Nicotine 14 MG/24 Hr Patch TRDERM SCH (10:34)
[2021-04-21] MEDS: Pantoprazole 40 MG Tab.CR PO SCH (10:35)
[2021-04-21] MEDS: Doxycycline 100 MG Cap PO SCH ×2 (10:35→21:28)
[2021-04-21] MEDS: amLODIPine 5 MG Tab PO SCH (10:35)
[2021-04-21] MEDS: Lisinopril 20 MG Tab PO SCH (10:35)
[2021-04-21] MEDS: predniSONE 20 MG Tab PO SCH (10:36)
[2021-04-21] MEDS: Potassium Chloride 20 MEQ Tab.ER PO SCH ×2 (10:36→16:26)
[2021-04-21] MEDS: Carvedilol 3.125 MG Tab PO SCH ×2 (10:36→21:29)
[2021-04-21] MEDS: Aspirin 81 MG Tab.EC PO SCH (10:36)
[2021-04-21] MEDS: levETIRAcetam in NaCl (iso-os) 1,000 MG in Premix Bag 1 BAG IV SCH ×2 (12:46)
[2021-04-21] MEDS: atorvaSTATin 10 MG Tab PO SCH (21:29)
[2021-04-22] MEDS: Albuterol/Ipratropium 3.0-0.5 MG/3 ML Neb Soln NEB SCH (07:21)
[2021-04-22] MEDS: Formoterol/Mometasone 100-5 MCG 8.8 GM Inhaler IH SCH (07:21)
[2021-04-22 07:55] VITALS: BP 127/70; PULSE 84
[2021-04-22] MEDS: Potassium Chloride 20 MEQ Tab.ER PO SCH (07:58)
[2021-04-22] MEDS: Pantoprazole 40 MG Tab.CR PO SCH (07:58)
[2021-04-22] MEDS: Carvedilol 3.125 MG Tab PO SCH (08:11)
[2021-04-22] MEDS: Aspirin 81 MG Tab.EC PO SCH (08:13)
[2021-04-22] MEDS: Nicotine 14 MG/24 Hr Patch TRDERM SCH (08:13)
[2021-04-22] MEDS: amLODIPine 5 MG Tab PO SCH (08:13)
[2021-04-22] MEDS: Lisinopril 20 MG Tab PO SCH (08:14)
[2021-04-22] MEDS: Doxycycline 100 MG Cap PO SCH (08:14)
== END 2021-04-22 11:42 | disposition home health service (06) | DRG 871 ==
LOC: JP.ED 17:05 → JP.ICU 19:40
PROVIDERS: ADMIT Hospitalist; ATTEND Internal Medicine
PROC: 5A1945Z Respiratory Ventilation, 24-96 Consecutive Hours (ICD-10-PCS; 2021-04-14)
PROC: 0BH17EZ Insertion of Endotracheal Airway into Trachea, Via Natural or Artificial Opening (ICD-10-PCS; 2021-04-14)
PROC: 3E033XZ Introduction of Vasopressor into Peripheral Vein, Percutaneous Approach (ICD-10-PCS; 2021-04-14)
PROC: 02HV33Z Insertion of Infusion Device into Superior Vena Cava, Percutaneous Approach (ICD-10-PCS; principal; 2021-04-15)
DX: A41.9 Sepsis, unspecified organism (principal); J96.01 Acute respiratory failure with hypoxia; J69.0 Pneumonitis due to inhalation of food and vomit; J96.02 Acute respiratory failure with hypercapnia; E87.1 Hypo-osmolality and hyponatremia; N39.0 Urinary tract infection, site not specified; G82.20 Paraplegia, unspecified; F17.210 Nicotine dependence, cigarettes, uncomplicated; Z88.2 Allergy status to sulfonamides; I10 Essential (primary) hypertension; E87.6 Hypokalemia; E66.01 Morbid (severe) obesity due to excess calories; R56.9 Unspecified convulsions; Z79.82 Long term (current) use of aspirin; Z79.899 Other long term (current) drug therapy; Z88.0 Allergy status to penicillin; Z88.1 Allergy status to other antibiotic agents; Z88.8 Allergy status to other drugs, medicaments and biological substances; H54.7 Unspecified visual loss; Z87.440 Personal history of urinary (tract) infections; M19.90 Unspecified osteoarthritis, unspecified site; L89.322 Pressure ulcer of left buttock, stage 2; Z20.822 Contact with and (suspected) exposure to COVID-19
CPT/HCPCS: 0241U; 36415; 36600; 70450; 71045; 71275; 80048; 80053; 80202; 81001; 82803; 82947; 83605; 83735; 83930; 83935; 84295; 84300; 84443; 84484; 85025; 85027; 85379; 86140; 87040; 87086; 87088; 93005; 93306; 94002; 94003; 94640; 94660; 96125; 97110; 97163; 97165; 97535; 99285; A9270-GY; C9113; J0330; J1642; J1644; J1650; J1940; J1953; J1956; J2020; J2185; J2270; J2704; J2920; J3370; J3475; J3480; J3490; J7030; J7040; J7120; J7131; J7512; J7620-GY; Q9967

== ENCOUNTER 2021-05-24 13:27 | Emergency (ER) | payer MEDICARE, MEDICAID ==
[2021-05-24] MEDS ORDERED: Sodium Chloride 0.9% 75 ML IV SCH (13:45)
[2021-05-24] MEDS ORDERED: Iopamidol 755 Mg/ML 100 ML Bottle IV SCH (13:45)
[2021-05-24] MEDS ORDERED: Vancomycin 2 GM in Sodium Chloride 0.9% 500 ML IV ONE (14:14)
[2021-05-24] MEDS ORDERED: Levofloxacin/Dextrose 5%-Water 750 MG in Premix Bag 1 BAG IV ONE (14:15)
[2021-05-24] MEDS ORDERED: metroNIDAZOLE/Normal Saline 500 MG in Premix Bag 1 BAG IV ONE (14:17)
[2021-05-24] MEDS ORDERED: Sodium Chloride 0.9% 1,000 ML IV ONE ×2 (14:28→15:52)
[2021-05-24] MEDS ORDERED: Doxycycline 100 MG in Sodium Chloride 0.9% 100 ML IV ONE (15:40)
[2021-05-24 15:43] VITALS: BP 99/62; PULSE 82
[2021-05-24 16:30] LABS: CORONAVIRUS COVID-19 NAA NEGATIVE (NEGATIVE)
== END 2021-05-24 17:00 ==
LOC: JP.ED 13:27
DX: A41.9 Sepsis, unspecified organism (principal); S31.829A Unspecified open wound of left buttock, initial encounter; T83.511A Infection and inflammatory reaction due to indwelling urethral catheter, initial encounter; L03.317 Cellulitis of buttock; L02.31 Cutaneous abscess of buttock; I95.9 Hypotension, unspecified; D64.9 Anemia, unspecified; D72.829 Elevated white blood cell count, unspecified; R06.82 Tachypnea, not elsewhere classified; E87.1 Hypo-osmolality and hyponatremia; G82.20 Paraplegia, unspecified; I10 Essential (primary) hypertension; E66.9 Obesity, unspecified; Z68.37 Body mass index [BMI] 37.0-37.9, adult; Z88.0 Allergy status to penicillin; Z88.1 Allergy status to other antibiotic agents; Z79.899 Other long term (current) drug therapy; Z79.82 Long term (current) use of aspirin; Z20.822 Contact with and (suspected) exposure to COVID-19
CPT/HCPCS: 0241U; 36415; 81001; 83605; 87040; 87070; 87077; 87205; 96365; 96367; 96375; 99285; J3370; J3490; J7030; J7040; 87088

== ENCOUNTER 2022-01-22 15:23 | Inpatient (IN) | payer MEDICARE, MEDICAID ==
[2022-01-23] MEDS ORDERED: Sodium Chloride 0.9% 1,000 ML IV SCH (16:15)
[2022-01-23] MEDS ORDERED: Acetaminophen 325 MG Tab PO PRN (16:17)
[2022-01-23] MEDS ORDERED: Albuterol 0.083% 2.5 MG/3 ML Neb Soln INH PRN (16:17)
[2022-01-23] MEDS ORDERED: Docusate Sodium 100 MG Cap PO PRN (16:18)
[2022-01-23] MEDS ORDERED: Magnesium Hydroxide 400 MG/5 ML Susp 30 ML Cup PO PRN (16:18)
[2022-01-23] MEDS ORDERED: Acetaminophen 650 MG Supp RECTAL PRN (16:18)
[2022-01-23] MEDS ORDERED: Calcium Carbonate 500 MG Tab.Chew PO PRN (16:19)
[2022-01-23] MEDS: Enoxaparin 40 MG/0.4 ML Syringe SUBCUT SCH (20:31)
[2022-01-23] MEDS: Carvedilol 3.125 MG Tab PO SCH (20:32)
[2022-01-23] MEDS: traZODone 50 MG Tab PO SCH (20:33)
[2022-01-23] MEDS: atorvaSTATin 10 MG Tab PO SCH (20:33)
[2022-01-23] MEDS: Famotidine 20 MG Tab PO SCH (20:33)
[2022-01-23] MEDS: Formoterol/Mometasone 100-5 MCG 8.8 GM Inhaler IH SCH (20:33)
[2022-01-23] MEDS ORDERED: Calcitonin (Salmon) 200 Units/ML 2 ML MDV SUBCUT SCH (21:00)
[2022-01-24] MEDS: Carvedilol 3.125 MG Tab PO SCH ×3 (00:59→21:12)
[2022-01-24 04:53] LABS: ESTIMATED GFR 102 mL/min (>60)
[2022-01-24] MEDS: Formoterol/Mometasone 100-5 MCG 8.8 GM Inhaler IH SCH ×2 (07:42→21:12)
[2022-01-24] MEDS ORDERED: Potassium Chloride 20 MEQ Tab.ER PO ONE (09:00)
[2022-01-24] MEDS: Famotidine 20 MG Tab PO SCH ×2 (09:11→21:13)
[2022-01-24] MEDS: Folic Acid 1 MG Tab PO SCH (09:11)
[2022-01-24] MEDS ORDERED: Calcitonin (Salmon) 200 Units/ML 2 ML MDV SUBCUT ONE ×2 (12:00→22:00)
[2022-01-24] MEDS: cefTRIAXone 1 GM in Sodium Chloride 0.9% 50 ML IV SCH (14:18)
[2022-01-24] MEDS: Enoxaparin 40 MG/0.4 ML Syringe SUBCUT SCH (18:55)
[2022-01-24] MEDS: traZODone 50 MG Tab PO SCH (21:12)
[2022-01-24] MEDS: atorvaSTATin 10 MG Tab PO SCH (21:13)
[2022-01-25] MEDS: Formoterol/Mometasone 100-5 MCG 8.8 GM Inhaler IH SCH ×2 (07:22→20:13)
[2022-01-25] MEDS: Famotidine 20 MG Tab PO SCH ×2 (08:09→20:14)
[2022-01-25] MEDS: Folic Acid 1 MG Tab PO SCH (08:09)
[2022-01-25] MEDS: Carvedilol 3.125 MG Tab PO SCH (09:14)
[2022-01-25] MEDS: cefTRIAXone 1 GM in Sodium Chloride 0.9% 50 ML IV SCH (14:53)
[2022-01-25] MEDS: Enoxaparin 40 MG/0.4 ML Syringe SUBCUT SCH (17:44)
[2022-01-25] MEDS: traZODone 50 MG Tab PO SCH (20:13)
[2022-01-25] MEDS: atorvaSTATin 10 MG Tab PO SCH (20:13)
[2022-01-26 05:08] LABS: ESTIMATED GFR 106 mL/min (>60)
[2022-01-26] MEDS: Formoterol/Mometasone 100-5 MCG 8.8 GM Inhaler IH SCH ×2 (07:10→21:32)
[2022-01-26] MEDS: Folic Acid 1 MG Tab PO SCH (09:10)
[2022-01-26] MEDS: Famotidine 20 MG Tab PO SCH ×2 (09:10→21:31)
[2022-01-26] MEDS: Cephalexin 250 MG Cap PO SCH ×2 (09:11→21:31)
[2022-01-26] MEDS: Carvedilol 3.125 MG Tab PO SCH (09:17)
[2022-01-26] MEDS: Albumin Human 25 GM in Premix Bag 1 BAG IV SCH (14:13)
[2022-01-26] MEDS: Enoxaparin 40 MG/0.4 ML Syringe SUBCUT SCH (17:11)
[2022-01-26] MEDS ORDERED: diphenhydrAMINE 25 MG Cap PO SCH (21:00)
[2022-01-26] MEDS ORDERED: Acetaminophen 500 MG Tab PO SCH (21:00)
[2022-01-26] MEDS: atorvaSTATin 10 MG Tab PO SCH (21:31)
[2022-01-26] MEDS: traZODone 50 MG Tab PO SCH (21:31)
[2022-01-27] MEDS ORDERED: Iopamidol 612 MG/ML 100 ML Bottle IV STA (04:29)
[2022-01-27] MEDS ORDERED: Sodium Chloride 0.9% 100 ML IV STA (04:29)
[2022-01-27] MEDS: Formoterol/Mometasone 100-5 MCG 8.8 GM Inhaler IH SCH (07:06)
[2022-01-27] MEDS: Cephalexin 250 MG Cap PO SCH (08:08)
[2022-01-27] MEDS: Folic Acid 1 MG Tab PO SCH (08:08)
[2022-01-27] MEDS: Famotidine 20 MG Tab PO SCH (08:08)
[2022-01-27] MEDS: Albumin Human 25 GM in Premix Bag 1 BAG IV SCH (13:09)
[2022-01-27 14:17] VITALS: PULSE 106
[2022-01-27 14:41] VITALS: BP 110/67
== END 2022-01-27 16:30 | DRG 698 ==
LOC: JP.MS 15:23
PROVIDERS: ADMIT Internal Medicine; ATTEND Internal Medicine
PROC: 30233N1 Transfusion of Nonautologous Red Blood Cells into Peripheral Vein, Percutaneous Approach (ICD-10-PCS; principal; 2022-01-24)
DX: T83.518A Infection and inflammatory reaction due to other urinary catheter, initial encounter (principal); L89.894 Pressure ulcer of other site, stage 4; N17.9 Acute kidney failure, unspecified; G82.20 Paraplegia, unspecified; Z68.41 Body mass index [BMI] 40.0-44.9, adult; J90 Pleural effusion, not elsewhere classified; C90.00 Multiple myeloma not having achieved remission; N13.6 Pyonephrosis; E83.52 Hypercalcemia; E87.5 Hyperkalemia; D64.9 Anemia, unspecified; R19.00 Intra-abdominal and pelvic swelling, mass and lump, unspecified site; Z87.891 Personal history of nicotine dependence; Z99.3 Dependence on wheelchair; N31.9 Neuromuscular dysfunction of bladder, unspecified; D75.839 Thrombocytosis, unspecified
CPT/HCPCS: 36415; 36430; 51702; 71260; 74177; 80048; 80053; 85018; 85025; 85027; 86850; 86900; 86901; 86920; 86922; 87086; 87088; 87186; 94640; 99222; 99232; 99239; A9270-GY; J0630; J0696; J1650; J3490; J7030; P9016; P9047; Q9967